=== PATIENT | female | born 1935 | race Caucasian/White ===

== ENCOUNTER 2019-01-23 10:11 | Day surgery (SDC) | payer OTHER ==
[~2019-01-23] VITALS: Ht 160 cm; Wt 77.1 kg
[~2019-01-23 10:11] MED LIST: ALEN70 PO; ALPR.25 PO; ALPR.5 PO; ASPI81EC PO; Azor 5-20 MG T1 EACH; BELPTAB PO; Bactrim 400-801 EACH PO; CALCIT950 PO; CARI350 PO; CARV25 PO; CARV3.125 PO; CARV6.25 PO; CELE200; CLON1 PO; CODACE30; CODACE30 PO; CONEST1.25; CONEST1.25 PO; CYAN500 PO; Coreg6.25 MG PO; DIPATR PO; ERYT.5TO OD; ESOM20 PO; FERR325 PO; FISH1000 PO; FLUO10 PO; FLUO20; FLUO20 PO; GLUCHON PO; LEVSOD100; LEVSOD100 PO; LEVSOD25; LEVSOD25 PO; LISI20 PO; LISI5 PO; MELO7.5 PO; MILN100T PO; MULVITB PO; MULVITMIND PO; Mirapex0.25 MG PO; Mirapex0.5 MG PO; Mobic15 MG PO; OMEG1CAP30 PO; OMEP10ER PO; OMEP20ER PO; Omeprazole20 M1 PO; PANT40 PO; PARO20 PO; PRAM.125 PO; PRAM.5 PO; PROM25 PO; Prozac20 MG PO; SPIR25; SPIR25 PO; UBID10 PO; UBID100 PO; VITAMIN D3; [UNRECOGNIZED DRUG - REMARK]
[2019-01-23] MEDS ORDERED: LORA.5 (11:05)
[2019-01-23] MEDS ORDERED: AMLO5 (11:07)
--- NOTE | 2019-01-23 15:29 | NUR ---
01/23/19 1529 Mine Zapata PT COMPLAINED OF PAIN DURING STEP DOWN. RN TREATED WITH IV PAIN MEDICATIONS PER DR'S ORDERS (SEE VITAL SIGNS). RN WENT OVER DISCHARGE INSTRUCTIONS WITH PT AND PT'S DAUGHTER UNTIL ALL QUESTIONS WERE ANSWERED. VSS WHILE IN STEP DOWN. PT TOLERATED PO FLUIDS AND CRACKERS WELL AND DEINED NAUSEA. PT IS NOW DRESSING WITH HELP FROM HER DAUGHTER.
== END 2019-01-23 15:45 | disposition home or self-care (01) ==
LOC: ORSCSDS 10:11
PROVIDERS: Podiatrist Foot & Ankle Surgery
PROC: 0SGJ04Z Fusion of Left Tarsal Joint with Internal Fixation Device, Open Approach (ICD-10-PCS; principal; 2019-01-23 11:30)
PROC: 0LQW0ZZ Repair Left Foot Tendon, Open Approach (ICD-10-PCS; principal; 2019-01-23 11:30)
DX: M19.072 Primary osteoarthritis, left ankle and foot (principal); S96.812A Strain of other specified muscles and tendons at ankle and foot level, left foot, initial encounter; I10 Essential (primary) hypertension; G47.33 Obstructive sleep apnea (adult) (pediatric); Z87.891 Personal history of nicotine dependence; E03.9 Hypothyroidism, unspecified; Z79.899 Other long term (current) drug therapy
CPT/HCPCS: C1713; C1769; J0171; J2250; J2704; J3010; J7120

== ENCOUNTER 2020-12-09 08:07 | Day surgery (SDC) | payer MEDICARE ==
[~2020-12-09] VITALS: Ht 160 cm; Wt 82.1 kg
[~2020-12-09 08:07] MED LIST changes: +AMLO5; +BUPR150ER PO; +LORA.5; +LORA.5 PO; +MOBIC15 MG PO; +SYNTHROID150 MC2 PO
--- NOTE | 2020-12-09 09:17 | NUR ---
12/09/20916 Tracy Zepeda VANCOMYCIN 1GM IN 100ML STARTED INTRAVENOUSLY AT 0915 BY Francisco ZEPEDA RN
--- NOTE | 2020-12-09 11:16 | NUR ---
12/09/20 1116 Liza Patiño 0.15CC OF EPI 1:1000 MIXED WITH 30CC OF 0.5% BUPIVICAINE TO MAKE [id number] MIXTURE
--- NOTE | 2020-12-09 12:49 | NUR ---
12/09/20 1249 GINGER LOPEZ WHEN ENTERED PACU, PT HAD MEMORY ISSUES. THOUGHT SHE WAS DREAMING AND UNABLE TO CONVEY HOW BAD PAIN WAS. STATED HURTING AND BEGAN CRYING. DID NOT KNOW WHERE SHE WAS OR WHY SHE WAS HERE. UNSURE WHY SHE HAD SURGERY.
== END 2020-12-09 13:30 | disposition home or self-care (01) ==
LOC: ORSCSDS 08:07
PROVIDERS: Podiatrist Foot & Ankle Surgery
PROC: 0SGJ04Z Fusion of Left Tarsal Joint with Internal Fixation Device, Open Approach (ICD-10-PCS; principal; 2020-12-09 09:45)
PROC: 0YPB0YZ Removal of Other Device from Left Lower Extremity, Open Approach (ICD-10-PCS; principal; 2020-12-09 09:45)
DX: M96.0 Pseudarthrosis after fusion or arthrodesis (principal); I10 Essential (primary) hypertension; E78.5 Hyperlipidemia, unspecified; E03.9 Hypothyroidism, unspecified; Z79.899 Other long term (current) drug therapy
CPT/HCPCS: A9270; C1713; C1769; J0171; J1100; J2370; J2405; J2704; J3010; J3370; J7120

== ENCOUNTER 2021-02-14 13:00 | Emergency (ER) | payer MEDICARE ==
[~2021-02-14] VITALS: Ht 160 cm; Wt 81.2 kg
[2021-02-14] MEDS ORDERED: HYDR1TAB94 PO (16:31)
== END 2021-02-14 16:40 | disposition home or self-care (01) ==
LOC: ER 13:00
DX: M25.562 Pain in left knee (principal); M79.89 Other specified soft tissue disorders; I25.2 Old myocardial infarction; Z88.0 Allergy status to penicillin; Z91.048 Other nonmedicinal substance allergy status; Z88.1 Allergy status to other antibiotic agents; Z88.8 Allergy status to other drugs, medicaments and biological substances; Z79.899 Other long term (current) drug therapy
CPT/HCPCS: 93971; 99283-25

== ENCOUNTER 2021-03-13 10:44 | Emergency (ER) | payer MEDICARE ==
[~2021-03-13] VITALS: Ht 160 cm; Wt 81.2 kg
[~2021-03-13 10:44] MED LIST changes: +HYDR1TAB94 PO
[2021-03-13] MEDS ORDERED: NAPR500 PO (14:40)
[2021-03-13] MEDS ORDERED: LIDO700A20 TOP (14:40)
== END 2021-03-13 15:00 | disposition home or self-care (01) ==
LOC: ER 10:44
DX: M54.42 Lumbago with sciatica, left side (principal); G89.29 Other chronic pain; I25.2 Old myocardial infarction; E03.9 Hypothyroidism, unspecified; K21.9 Gastro-esophageal reflux disease without esophagitis; Z79.899 Other long term (current) drug therapy
CPT/HCPCS: 96374; 99282-25; A9270; J1885

== ENCOUNTER 2021-03-17 11:01 | Emergency (ER) | payer MEDICARE ==
[~2021-03-17] VITALS: Ht 160 cm; Wt 77.1 kg
[~2021-03-17 11:01] MED LIST changes: +LIDO700A20 TOP; +NAPR500 PO
[2021-03-17] MEDS ORDERED: Roxicodone5 MG PO (14:29)
== END 2021-03-17 15:18 | disposition home or self-care (01) ==
LOC: ER 11:01
DX: M54.32 Sciatica, left side (principal); I25.2 Old myocardial infarction; E03.9 Hypothyroidism, unspecified; K21.9 Gastro-esophageal reflux disease without esophagitis; Z88.0 Allergy status to penicillin; Z88.8 Allergy status to other drugs, medicaments and biological substances; Z79.899 Other long term (current) drug therapy
CPT/HCPCS: 73502; 96374; 96375; 99284-25; J1170; J1630

== ENCOUNTER 2021-12-08 08:52 | Emergency (ER) | payer MEDICARE ==
[~2021-12-08] VITALS: Ht 160 cm; Wt 81.7 kg
[~2021-12-08 08:52] MED LIST changes: +Roxicodone5 MG PO
[2021-12-08 09:31] LABS: Source, Urine Clean Catch
[2021-12-08 09:35] LABS: Appearance, Urine Clear (Clear); Bilirubin, Urine Neg (Neg); Blood, Urine Neg (Neg); Color, Urine Yellow (P-Yellow); Glucose Qualitative, Urine Neg (Neg); Ketones, Urine Neg (Neg); Leukocyte Esterase, Urine Neg (Neg); Nitrite, Urine Neg (Neg); Protein, Urine Neg (Neg); Specific Gravity, Urine 1.015 (1.003-1.022); Urobilinogen, Urine NORM (Normal)
[2021-12-08 09:52] LABS: BASOPHILS ABSOLUTE AUTO 0.03 K/mm3 (0.00-0.23); BASOPHILS PERCENT AUTO 1 % (0-2); EOSINOPHILS ABSOLUTE AUTO 0.18 K/mm3 (0.00-0.68); EOSINOPHILS PERCENT AUTO 3 % (0-6); Hematocrit 43.1 % (33.0-51.0); Hemoglobin 14.4 g/dL (11.5-16.0); IMMATURE GRAN ABSOLUTE AUTO 0.01 K/mm3 (0.00-0.10); IMMATURE GRAN PERCENT AUTO 0 % (0-1); LYMPHOCYTES ABSOLUTE AUTO 2.81 K/mm3 (0.84-5.20); LYMPHOCYTES PERCENT AUTO 44 % (21-46); MONOCYTES ABSOLUTE AUTO 0.74 K/mm3 (0.16-1.47); MONOCYTES PERCENT AUTO 12 % (4-13); Mean Corpuscular HGB 29.8 pg (26.0-34.0); Mean Corpuscular HGB Conc 33.4 g/dL (31.5-36.5); Mean Corpuscular Volume 89 fL (80-100); Mean Platelet Volume 11.9 fL (9.1-12.4); NEUTROPHILS ABSOLUTE AUTO 2.69 K/mm3 (1.96-9.15); NEUTROPHILS PERCENT AUTO 42 % (41-73); Platelet Count 231 K/mm3 (150-400); RDW Coefficient Variation 13.7 % (11.7-14.2); RDW Standard Deviation 45.1 fL (35.1-46.3); Red Blood Cell Count 4.83 M/mm3 (3.80-5.20); White Blood Cell Count 6.46 K/mm3 (4.00-11.30)
[2021-12-08 10:08] LABS: Albumin, Blood 3.3 g/dL (3.4-5.0); Albumin/Globulin Ratio 0.9 (0.8-1.8); Bilirubin, Total 0.8 mg/dL (0.1-1.0); Bun/Creatinine Ratio 36.7 (12.0-20.0); Calcium, Blood 9.4 mg/dL (8.5-10.1); Creatinine, Blood 0.79 mg/dL (0.40-1.00); Globulin, Blood 3.6 g/dL (2.2-4.0); Potassium, Blood 4.5 mmol/L (3.5-5.5); Total Protein, Blood 6.9 g/dL (6.4-8.2)
== END 2021-12-08 11:21 | disposition home or self-care (01) ==
LOC: ER 08:52
PROVIDERS: Physician Assistant
DX: F03.90 Unspecified dementia, unspecified severity, without behavioral disturbance, psychotic disturbance, mood disturbance, and anxiety (principal); I25.2 Old myocardial infarction; E03.9 Hypothyroidism, unspecified; F32.A Depression, unspecified; F41.9 Anxiety disorder, unspecified; K21.9 Gastro-esophageal reflux disease without esophagitis; Z79.899 Other long term (current) drug therapy; Z88.1 Allergy status to other antibiotic agents; Z88.5 Allergy status to narcotic agent; Z88.0 Allergy status to penicillin; Z88.8 Allergy status to other drugs, medicaments and biological substances; Z91.09 Other allergy status, other than to drugs and biological substances
CPT/HCPCS: 51701; 80053; 81003; 85025; 93005; 93010; 99285-25

== ENCOUNTER 2023-05-21 11:37 | Emergency (ER) | payer MEDICARE ==
[~2023-05-21] VITALS: Ht 160 cm; Wt 85.3 kg
[2023-05-21] MEDS ORDERED: VALA500 PO (12:15)
[2023-05-21] MEDS ORDERED: PRED20 PO (12:15)
[2023-05-21] MEDS ORDERED: ERYT.5TO RIGHTEYE (12:15)
[2023-05-21 12:42] VITALS: BP 155/104
== END 2023-05-21 12:42 | disposition home or self-care (01) ==
LOC: ER 11:37
DX: G51.0 Bell's palsy (principal); E03.9 Hypothyroidism, unspecified; I25.2 Old myocardial infarction; F03.90 Unspecified dementia, unspecified severity, without behavioral disturbance, psychotic disturbance, mood disturbance, and anxiety; K21.9 Gastro-esophageal reflux disease without esophagitis; Z88.0 Allergy status to penicillin; Z91.09 Other allergy status, other than to drugs and biological substances; Z88.1 Allergy status to other antibiotic agents; Z88.8 Allergy status to other drugs, medicaments and biological substances; Z79.899 Other long term (current) drug therapy; Z79.890 Hormone replacement therapy; Z96.653 Presence of artificial knee joint, bilateral; Z87.891 Personal history of nicotine dependence
CPT/HCPCS: 93005; 93010; 99284-25; A9270; J7512

== ENCOUNTER 2023-05-29 14:51 | Emergency (ER) | payer MEDICARE ==
[~2023-05-29] VITALS: Ht 160 cm; Wt 83.9 kg
[~2023-05-29 14:51] MED LIST changes: +ERYT.5TO RIGHTEYE; +PRED20 PO; +VALA500 PO
[2023-05-29 15:42] LABS: BASOPHILS ABSOLUTE AUTO 0.02 K/mm3 (0.00-0.23); BASOPHILS PERCENT AUTO 0 % (0-2); EOSINOPHILS ABSOLUTE AUTO 0.12 K/mm3 (0.00-0.68); EOSINOPHILS PERCENT AUTO 1 % (0-6); Hemoglobin 13.6 g/dL (11.5-16.0); IMMATURE GRAN ABSOLUTE AUTO 0.07 K/mm3 (0.00-0.10); IMMATURE GRAN PERCENT AUTO 1 % (0-1); LYMPHOCYTES ABSOLUTE AUTO 3.82 K/mm3 (0.84-5.20); LYMPHOCYTES PERCENT AUTO 41 % (21-46); MONOCYTES ABSOLUTE AUTO 1.12 K/mm3 (0.16-1.47); MONOCYTES PERCENT AUTO 12 % (4-13); Mean Corpuscular HGB 29.4 pg (26.0-34.0); Mean Corpuscular HGB Conc 32.4 g/dL (31.5-36.5); Mean Corpuscular Volume 91 fL (80-100); Mean Platelet Volume 12.1 fL (9.1-12.4); NEUTROPHILS ABSOLUTE AUTO 4.21 K/mm3 (1.96-9.15); NEUTROPHILS PERCENT AUTO 45 % (41-73); Platelet Count 235 K/mm3 (150-400); RDW Coefficient Variation 14.1 % (11.7-14.2); RDW Standard Deviation 46.5 fL (35.1-46.3); Red Blood Cell Count 4.63 M/mm3 (3.80-5.20); White Blood Cell Count 9.36 K/mm3 (4.00-11.30)
[2023-05-29 15:54] LABS: Albumin, Blood 3.1 g/dL (3.4-5.0); Bilirubin, Total 0.9 mg/dL (0.1-1.0); Bun/Creatinine Ratio 20.5 (12.0-20.0); Calcium, Blood 8.6 mg/dL (8.5-10.1); Creatinine, Blood 1.27 mg/dL (0.40-1.00); Potassium, Blood 4.2 mmol/L (3.5-5.5); Total Protein, Blood 6.1 g/dL (6.4-8.2)
[2023-05-29 17:15] VITALS: BP 142/78
== END 2023-05-29 17:27 | disposition home or self-care (01) ==
LOC: ER 14:51
PROVIDERS: Emergency Medicine
DX: R55 Syncope and collapse (principal); I95.9 Hypotension, unspecified; G51.0 Bell's palsy; I25.2 Old myocardial infarction; E03.9 Hypothyroidism, unspecified; F03.90 Unspecified dementia, unspecified severity, without behavioral disturbance, psychotic disturbance, mood disturbance, and anxiety; F32.A Depression, unspecified; F41.9 Anxiety disorder, unspecified; Z79.52 Long term (current) use of systemic steroids; Z79.890 Hormone replacement therapy; Z79.899 Other long term (current) drug therapy; Z88.0 Allergy status to penicillin; Z88.1 Allergy status to other antibiotic agents; Z88.8 Allergy status to other drugs, medicaments and biological substances; Z91.048 Other nonmedicinal substance allergy status
CPT/HCPCS: 71045; 80053; 84484; 85025; 93005; 93010; 96360; 99285-25; J7030

== ENCOUNTER 2023-07-28 14:20 | Inpatient (IN) | payer MEDICARE ==
[~2023-07-28] VITALS: Ht 154.9 cm; Wt 79.7 kg
[2023-07-28] VITALS (12 sets, daily range): BP systolic 68–161; BP diastolic 52–140
[2023-07-28] MEDS ORDERED: NS 1,000 ML IV SCH ×3 (14:40→18:20)
[2023-07-28] MEDS ORDERED: LEVOTHYROXINE125 MC9 PO (14:44)
[2023-07-28] MEDS ORDERED: QUET100 PO (14:45)
[2023-07-28] MEDS ORDERED: Seroquel Xr50 MG PO (14:45)
[2023-07-28] MEDS ORDERED: XARELTO20 MG PO (14:45)
[2023-07-28] MEDS ORDERED: Aspir 8181 MG PO (14:45)
[2023-07-28] MEDS ORDERED: OMEP20ER PO (14:45)
[2023-07-28 15:14] LABS: Hematocrit 39.6 % (33.0-51.0); Hemoglobin 13.1 g/dL (11.5-16.0); Mean Corpuscular HGB 29.2 pg (26.0-34.0); Mean Corpuscular HGB Conc 33.1 g/dL (31.5-36.5); Mean Corpuscular Volume 88 fL (80-100); Mean Platelet Volume 12.9 fL (9.1-12.4); Platelet Count 160 K/mm3 (150-400); RDW Standard Deviation 49.2 fL (35.1-46.3); Red Blood Cell Count 4.48 M/mm3 (3.80-5.20); White Blood Cell Count 26.13 K/mm3 (4.00-11.30)
[2023-07-28 15:34] LABS: Albumin, Blood 2.2 g/dL (3.4-5.0); Albumin/Globulin Ratio 0.5 (0.8-1.8); Bun/Creatinine Ratio 16.7 (12.0-20.0); Calcium, Blood 8.7 mg/dL (8.5-10.1); Creatinine, Blood 4.56 mg/dL (0.40-1.00); Globulin, Blood 4.4 g/dL (2.2-4.0); Potassium, Blood 4.8 mmol/L (3.5-5.5); Total Protein, Blood 6.6 g/dL (6.4-8.2)
[2023-07-28 15:46] LABS: Source, Urine Straight Cath
[2023-07-28 15:46] LABS: Influenza A, PCR NEGATIVE (NEGATIVE); Influenza B, PCR NEGATIVE (NEGATIVE); Resp Syncytial Virus, PCR NEGATIVE (NEGATIVE); SARS-Cov-2 (COVID-19) PCR, MMC NEGATIVE (NEGATIVE)
[2023-07-28 15:49] LABS: Appearance, Urine Cloudy (Clear); Blood, Urine 3+ (Neg); Color, Urine Amber (P-Yellow); Glucose Qualitative, Urine Neg (Neg); Ketones, Urine 1+ (Neg); Leukocyte Esterase, Urine 1+ (Neg); Nitrite, Urine Neg (Neg); Protein, Urine 2+ (Neg); Specific Gravity, Urine 1.025 (1.003-1.022); Urobilinogen, Urine 1+ (Normal)
[2023-07-28 15:56] LABS: BAND PERCENT MAN 5 % (0-8); BASOPHILS PERCENT MAN 0 % (0-2); EOSINOPHILS PERCENT MAN 0 % (0-6); LYMPHOCYTES ABSOLUTE MAN 1.82 K/mm3 (0.84-5.20); LYMPHOCYTES PERCENT MAN 7 % (21-46); MONOCYTES ABSOLUTE MAN 2.35 K/mm3 (0.16-1.47); MONOCYTES PERCENT MAN 9 % (4-13); NEUTROPHILS ABSOLUTE MAN 21.94 K/mm3 (1.96-9.15); SEG NEUTROPHILS PERCENT MAN 79 % (41-73); TOTAL CELLS COUNTED 100
[2023-07-28] MEDS ORDERED: CefTRIAXone Sodium 1,000 MG in NS 50 ML IV ONE (16:00)
[2023-07-28 16:23] LABS: Bilirubin, Urine 1+ (Neg)
[2023-07-28 16:25] LABS: Bacteria Many /hpf; Red Blood Cells, Urine 25-50 /hpf (0-2); Squamous Epithelial Cells Mod /hpf (Few); Transitional Epithelial Cells Rare /hpf (0-Rare)
[2023-07-28 16:27] LABS: Calcium Oxalate Crystals Rare /hpf; Hyaline Casts 0-2 /lpf (0-2)
[2023-07-28] MEDS ORDERED: FLU VACC QS2023-24(6MOS UP)/PF 60 MCG/0.5 ML SYRINGE IM ONE (18:20)
[2023-07-28] MEDS ORDERED: Acetaminophen 325 MG TABLET PO PRN (18:20)
[2023-07-28] MEDS ORDERED: Ondansetron HCl 2 MG / ML 2ML Vial IV PRN (18:20)
[2023-07-28] MEDS ORDERED: Dose Adjust by Pharmacy XX STA (18:55)
[2023-07-28] MEDS ORDERED: Heparin Sodium 5000 Units/ML 1ML MDV IV ONE (19:00)
[2023-07-28] MEDS ORDERED: Heparin Sodium,Porcine/0.5 NS 500 ML IV SCH (19:00)
[2023-07-28 19:03] LABS: Anti-Xa UFH, PHA Monitoring <0.10 IU/mL; International Normalized Ratio 1.09; Prothrombin Time Results 11.4 Sec (9.7-11.5)
[2023-07-28] MEDS ORDERED: Pramipexole DI-HCL 0.25 MG Tab PO SCH (21:00)
[2023-07-28] MEDS ORDERED: Lactobacil 2-S.Thermo-Bifido 1 1 Cap PO SCH (21:00)
[2023-07-28] MEDS ORDERED: QUEtiapine Fumarate 50 MG TAB PO SCH (21:00)
[2023-07-28] MEDS ORDERED: NS 1,000 ML BAG IR ONE (21:15)
[2023-07-28] MEDS ORDERED: NS 250 ML IV PRN (21:20)
[2023-07-28] MEDS ORDERED: NS 250 ML IV SCH (21:23)
[2023-07-29] VITALS (10 sets, daily range): BP systolic 70–109; BP diastolic 53–77
[2023-07-29 01:04] LABS: Hematocrit 34.1 % (33.0-51.0); Hemoglobin 11.2 g/dL (11.5-16.0); Mean Corpuscular HGB 28.9 pg (26.0-34.0); Mean Corpuscular HGB Conc 32.8 g/dL (31.5-36.5); Mean Corpuscular Volume 88 fL (80-100); Platelet Count 140 K/mm3 (150-400); RDW Coefficient Variation 15.3 % (11.7-14.2); RDW Standard Deviation 49.1 fL (35.1-46.3); Red Blood Cell Count 3.87 M/mm3 (3.80-5.20); White Blood Cell Count 23.63 K/mm3 (4.00-11.30)
[2023-07-29 01:06] LABS: Mean Platelet Volume 13.2 fL (9.1-12.4)
[2023-07-29 01:19] LABS: Albumin, Blood 1.9 g/dL (3.4-5.0); Albumin/Globulin Ratio 0.5 (0.8-1.8); Bilirubin, Total 0.5 mg/dL (0.1-1.0); Bun/Creatinine Ratio 21.6 (12.0-20.0); Calcium, Blood 7.5 mg/dL (8.5-10.1); Creatinine, Blood 3.66 mg/dL (0.40-1.00); Globulin, Blood 3.6 g/dL (2.2-4.0); Potassium, Blood 4.6 mmol/L (3.5-5.5); Total Protein, Blood 5.5 g/dL (6.4-8.2)
[2023-07-29 01:24] LABS: BAND PERCENT MAN 12 % (0-8); BASOPHILS PERCENT MAN 0 % (0-2); EOSINOPHILS PERCENT MAN 0 % (0-6); LYMPHOCYTES PERCENT MAN 3 % (21-46); MONOCYTES PERCENT MAN 3 % (4-13); NEUTROPHILS ABSOLUTE MAN 22.21 K/mm3 (1.96-9.15); SEG NEUTROPHILS PERCENT MAN 82 % (41-73); TOTAL CELLS COUNTED 100
--- NOTE | 2023-07-29 03:34 | NUR ---
END OF SHIFT NOTE: PT ARRIVED ON UNIT FROM ER WITH FAMILY AT [facility]. PT WAS VERY AGGITAGED AND REFUSING TO ANSWER QUESTIONS OR PARTICIPATE IN CARE. PT ALERT AND ORIENTED TO SELF ONLY. SPO2>90% ON RA. BP'S SOFT NOTIFIED AND PT BOLUSED PER EMAR. PT REFUSES USE OF CPAP. PT HAS ABSENT PULSES ON RIGHT LE. UNSTAGABLE PRESSURE WOUND ON LEFT HEEL, SCRATCHES ON RIGHT HIP, DISCOLORATION ON RIGHT LE, AND REDDENED AREA ON COCCYX-PICTURES IN CHART. PT ABLE TO TAKE MEDS WHOLE IN PUDDING. SHE DENIES PAIN. HEPARIN AND FLUIDS RUNNING PER EMAR. PT HAS CALL LIGHT IN REACH, BED IN LOWEST POSITOIN, AND BEDALARM ON. WILL REPORT TO ONCOMING RN.
--- NOTE | 2023-07-29 04:18 | NUR ---
PT STRAIGHT CATHED DUE TO >800ML. BLADDER DRAINED AND PUREWICK REPLACED.
[2023-07-29] MEDS ORDERED: Omeprazole 20 MG CapCR PO SCH (06:00)
[2023-07-29] MEDS ORDERED: Levothyroxine Sodium 0.125 MG Tab PO SCH (06:00)
[2023-07-29] MEDS ORDERED: Clarify Drug Order XX ONE (07:50)
[2023-07-29] MEDS ORDERED: Aspirin 81 MG TabEC PO SCH (09:00)
[2023-07-29] MEDS ORDERED: Lactated Ringer's 1,000 ML IV SCH (09:00)
[2023-07-29] MEDS ORDERED: Acetaminophen 650 MG Supp PR PRN (11:10)
[2023-07-29] MEDS ORDERED: Morphine Sulfate 10 MG/ML 1MLSYR IV PRN (11:10)
[2023-07-29] MEDS ORDERED: Scopolamine Hydrobromide Patch TOP PRN (11:10)
[2023-07-29] MEDS ORDERED: Atropine Sulfate 1% Opth Soln 2ML BTL SL PRN (11:10)
[2023-07-29] MEDS ORDERED: Morphine Sulfate 20 MG/1ML 1 ML Oral Syringe SL PRN (11:10)
[2023-07-29] MEDS ORDERED: LORazepam 1 MG Tab PO PRN (11:10)
[2023-07-29] MEDS ORDERED: LORazepam 2 MG/ML 1ML Injection IV PRN (11:10)
--- NOTE | 2023-07-29 11:17 | NUR ---
Met with family at bedside with Doctors present. They had just discussed comfort care, as pt is no longer responsive and 02 sats and BP trending down. Family agree with comfort care, received v/o from Dr. Thompson for comfort care, along with comfort medications. Orders placed. Will continue to provide support to family, assist bedside RN as needed for symptom management.
--- NOTE | 2023-07-29 13:24 | NUR ---
CARE ASSUMPTION PT ABLE TO COMMUNITCATE UPON CARE ASSUMPTION. CONFUSED, BUT ABLE TO ANSWER YES OR NO QUESTIONS. DISORIENTED TO PLACE/SITUATION/DATE. ASKS FOR DAUGHTERS. ABLE TO TAKE MEDS IN PUDDING. MD ROBERTSON IN ROOM TO CONSULT. MD ROBERTSON CALLED DAUGHTER, KATIE SHIELDS, WHO WAS HEADING TO ROOM. MD ROBERTSON AND CORNELIUS IN ROOM, CALLED PT'S PCP, MD LATOYA SOMMER TO DISCUSS APPROPRIATENESS OF PROCEDURE. PT'S DAUGHTER OPTED FOR COMFORT CARE INSTEAD OF PROCEDURE. MD MCKNIGHT CONTACTED. PALLIATIVE CARE CONTACTED. PT CHANGED TO COMFORT CARE. NO LONGER ALERT, RESPONDS TO PAIN. PAIN WITH REPOSITIONING, MEDICATING PER EMAR. ATTENDS C/D/I. MULTILPE FAMILY MEMBERS IN ROOM. TELE REMOVED. PT RESTING COMFORTABLY.
[2023-07-29] MEDS ORDERED: CefTRIAXone Sodium 1,000 MG in NS 50 ML IV SCH (16:00)
--- NOTE | 2023-07-29 18:18 | NUR ---
SHIFT SUMMARY SINCE CARE ASSUPMTION, MULTIPLE FAMILY IN ROOM. PT RESTING COMFORTABLY. NOT RESPONDING TO SOUNDS BUT RESPONDS TO PAIN. EYES NOT TRACKING. MEDICATED PER EMAR. REPOSITIONED Q2H. PT MOANS W/ REPOSITIONING. CURRENTLY FLOATED ON PILLOWS, FAMILY AT BEDSIDE.
--- NOTE | 2023-07-30 00:45 | NUR ---
UPDATE BLADDER SCAN SHOWED 834ml IN PT'S BLADDER. PT ALSO NOTED TO BECOMING MORE RESTLESS IN THE BED AND FIGETING. THIS RN SPOKE WITH PT'S DAUGHTER (CORNELIUS) AT BEDSIDE ABOUT PROs AND CONs INSERTING A OWEN CATHETER DUE TO PT'S EXTREME PAIN WITH MOVEMENT AND ACUTE RETENTION. PT'S DAUGHTER AGREEABLE TO OWEN INSERTION. DISCUSSED PLAN WITH AUDIO VIDEO TECH KRISSY. THIS RN AND AUDIO VIDEO TECH KRISSY EACH ATTEMPTED TO INSERT OWEN TWICE WITH NO SUCCESS. PT MEDICATED FOR PAIN MANAGED BEFORE AND AFTER OWEN INTERSTION ATTEMPT. SEE EMAR FOR ADMIN. DETAILS. PT'S DAUGHTER OPTED FOR STAFF TO TRY AGAIN AT LATER DATE.
--- NOTE | 2023-07-30 05:15 | NUR ---
SHIFT SUMMARY VERY LETHARGIC WITH ONLY INTERMITTENT EPISODES OF SPONTANEOUS EYE OPENING. PT OFTEN SLEEPS OR STARES BLANKLY AT THE SEEING DESPITE STIMULATION. INITIALLY ABLE TO FOLLOW SIMPLE COMMANDS SUCH SQUEEZING HANDS, BUT PT HAS BECOME MUCH MORE ALTERED THROUGHOUT THE SHIFT. INTERMITTENTLY CAN ANSWER VERY SIMPLE YES/NO QUESTIONS, BUT SPEECH REMAINS VERY SOFT/MUMBLED. FAMILY HAS REMAINED AT THE BEDSIDE THROUGHOUT THE SHIFT. ATTEMPTED TO PLACE OWEN FOR ACUTE RETENTION WITH NO SUCCESS. SEE UPDATE NOTE FOR MORE DETAILS. PAIN HAS BEEN WELL MANAGED WITH PRN PAIN MEDICATIONS. ORAL CARE WITH SUCTION PERFORMED TO KEEP ORAL MUCOSA CLEAN AND MOIST. COMFORT CARE MEASURES STILL IN EFFECT. NO NEW ORDERS AT THIS TIME, WILL REPORT TO ONCOMING RN.
--- NOTE | 2023-07-30 10:50 | NUR ---
Pt appears to be sleeping comfortably, respirations are even and unlabored. Pt's daughter Vanesa and Vanesa's son Jared are at the bedside, state that pt appears comfortable and they have no needs at this time.
--- NOTE | 2023-07-30 15:39 | NUR ---
Assumed care of patient at approx 1220; pt resting comfortably; this afternoon pt resp rate increased and breathing deep and fast and patient grimacing in pain; medicated per emar. Placed bishop catheter; medicated prior to placement for movement. Report givent to rn assuming care of patient. Pt transfered at approx 1530.
--- NOTE | 2023-07-30 15:40 | NUR ---
PT ARRIVED TO THE MEDICAL FLOOR FROM THE PCU VIA BED. REPORT TAKEN FROM CRYSTAL TALAVERA. PTS FAMILY AT THE BEDSIDE. PT IS NON VERBAL APPEARS TO BE COMFORTABLE AT THIS TIME. CALL LIGHT IN REACH
--- NOTE | 2023-07-31 08:06 | NUR ---
SHIFT SUMMARY ASAEL IS LETHARGIC, ON COMFORT CARE. PT GETS TENSE AND GRIMACES WHEN IN PAIN, AND WITH REPOSITIONING. MEDICATED PER EMAR TO KEEP PT COMFORTABLE. OWEN DRAINING DARK YELLOW URINE, NO BM THIS SHIFT. FAMILY AT BEDSIDE T/O NOC. BED IN LOWEST POSITION. FREQUENT ROUNDING.
[2023-07-31] MEDS ORDERED: DiphenhydrAMINE HCl 50 MG/ML 1ML Vial IV PRN (09:35)
--- NOTE | 2023-07-31 19:13 | NUR ---
PT IS DROWSY AWAKENS TO PAIN STIMULATION/REPOSITIONING. PT WAS MORE AWAKE RESTLESS THIS AM PT WAS MEDICATED FOR PAIN AND WITH BENADRYL FOR ITCHING AFTER THAT THE PT SEEMED MORE RELAXED AND WAS ABLE TO SLLEP FOR HOURS. THE PT WAS MEDICATED FOR PAIN AGAIN AROUND 16:30 AND THEN AGAIN NOW [id number] WITH BENADRYL FOR ITCHING. FAMILY AT THE BEDSIDE. CALL LIGHT IN REACH
--- NOTE | 2023-08-01 05:36 | NUR ---
SHIFT SUMMARY: PT IS ADMITTED FOR UTI AND IS A DNR. IS CURRENTLY COMFORT CARE. IS NOT ABLE TO MAKE NEEDS KNOWN. ADLs HAVE BEEN 1P MAX THROUGH SHIFT. PAIN HAS BEEN MANAGED BY PRN PAIN MANAGEMENT. FOLLEY IN PLACE AND DRAINING SONALI URINE IN SMALL AMOUNTS. FAMILY AT BEDSIDE THROUGH MOST OF SHIFT.
--- NOTE | 2023-08-01 15:32 | NUR ---
PALLATIVE CARE- MET WITH PATIENT AND DAUGHTER. JOINT VISIT WITH PC RN JESSICA. DISCUSSED END OF LIFE WITH DAUGHTER AND EVALUATED ASAEL FOR CHANGES. ENCOURAGED DAUGHGTER TO CONTINUE TALKING WITH HER MOTHER. PROVIDED INFORMATION ON END OF LIFE. DISCUSSED SYMPTOM MANAGMENT WITH BEDSIDE RN AND ADVISED ON MEDICATIONS DURING THE NEXT REPOSITIONING.
--- NOTE | 2023-08-01 16:04 | NUR ---
Palliative Comfort Symptom Management Primary RN reports pain, anxiety and fever have decreased post ativan, roxanol and tylenol administration. Nataliia is resting peacefully, eyes closed and contraction of bilat hands improved. Primary RN reports fever has decreased since Tylenol was given. This PC RN spoke with juan pablo Stiles'd order to change Tylenol suppository from PRN to scheduled. PC will remain available.
--- NOTE | 2023-08-01 16:25 | NUR ---
SHIFT SUMMARY: PT IS AN 87 YEAR OLD FEMALE HERE ON COMFORT CARE. SHE HAS REMAINED NON-VERBAL AND ONLY RESPONSIVE TO PAINFUL STIMULI. HER DAUGHTERS HAVE BEEN AT BEDSIDE THE ENTIRE SHIFT. WHEN I CAME ON THIS MORNING THE PATIENT'S EYES WERE WIDE OPEN AND APPEARED UNCOMFORTABLE. PATIENT'S PAIN HAS BEEN TREATED AND MANAGED THROUGHOUT THE SHIFT AND SHE IS APPEARING COMFORTABLE AND RESTING; EYES CLOSED. SHE WILL OPEN HER EYES TO VOICES AND WHEN CARE IS BEING PROVIDED, BUT DOES NOT RESPOND VERBALLY BESIDES FOR MOANING/CRYING OUT DUE TO PAIN. SHE WAS FEBRILE WITH A FEVER OF 101.8; FELT WARM. TYLENOL SUPPOSITORY GIVEN AND ICE PACKS AND COOL WASHCLOTH APPLIED. PATIENT IS NOT FEBRILE AT THIS TIME WITH A TEMP OF 99.5. GOAL IS TO STAY ONTOP OF PAIN MEDICATIONS (ROXANOL) MAXIMUM EVERY 2 HOURS TO MAINTAIN PATIENT'S COMFORT. FAMILY IS AGREEABLE TO THIS PLAN. TYLENOL WAS ALSO ORDERED AND SCHEDULED FOR FEVERS. PATIENT IS BEING REPOSITIONED AND PROVIDED ORAL CARE. SHE ISN'T EATING OR DRINKING. SHE IS IN BED, FAMILY AT BEDSIDE, RESTING, APPEARS COMFORTABLE, RESPIRTATION EVEN AND UNLABORED. NO SIGNS OR SYMPTOMS OF DISTRESS. UNSURE OF EXPECTED TIME OF DEMISE AT THIS TIME. PLAN OF CARE ONGOING.
[2023-08-01] MEDS ORDERED: Acetaminophen 650 MG Supp PR SCH (18:00)
--- NOTE | 2023-08-02 08:03 | NUR ---
SHIFT SUMMARY PT IS ON COMFORT CARE ONLY PT RESPONDS TO VERBAL STIMULI AND DURING PATIENT CARE. PT DOES NOT RESPOND IN A MEANINGFUL WAY OR ANSWER QUESTIONS BUT OCCASIONALLY WILL MAKE NOISE. PT HAS OWEN IN PLACE DRAINING DARK YELLOW CLOUDY URINE. PT IS NOT EATING OR DRINKING. CHANGED SCOPOLAMINE PATCH THIS SHIFT. MEDICATED PT PER EMAR. PT RECEIVING TYLENOL SUPPOSITORY Q6 DUE TO FEVER DURING THE PREVIOUS SHIFT. PT HAS NOT HAD ANY FEVERS THIS SHIFT. BED IN LOWEST POSITION WITH CALL LIGHT WITHIN REACH.
--- NOTE | 2023-08-02 11:00 | NUR ---
Primary RN, Yeimi reports EOL symptoms were well managed t/o the night. Pt's daughters have elected for [facility]. roller cleaner notified of family choice for post mortum care. Family declined additional visit from PC or [facility] at this time. PC will remain available as needed for support.
--- NOTE | 2023-08-02 12:31 | NUR ---
TIME OF : PATIENT COMFORTABLY WITH BOTH DAUGHTERS AT HER SIDE. TIME OF 1219; VERIFIED WITH BATCH FREEZER OPERATOR AND MD NOTIFIED. PATIENT'S FAMILY DECIDED ON [facility] FOR THE PATIENT. BATCH FREEZER OPERATOR COORDINATING AT THIS TIME. FAMILY REFUSED A VISIT BY [facility] AND PALLATIVE CARE. FAMILY GIVEN TIME TO BE ALONE WITH PATIENT AT THIS TIME AND ADVISED TO NOTIFY STAFF WHEN THEY ARE READY FOR THE PATIENT TO BE DISCHARGED.
--- NOTE | 2023-08-02 13:38 | NUR ---
HERMAN FROM [facility] ARRIVED TO GET THE PATIENT. FACESHEET WAS PROVIDED AND PATIENT WAS TRAN[facility]ED [facility]. OWEN CATHETER AND IV STILL IN PLACE WHEN DISCHARGED. PATIENT'S RING STILL PRESENT ON LEFT HAND.
== END 2023-08-02 12:19 | DRG 299 ==
LOC: ER 14:20 → PCU 18:15 → MEDS 18:15 → PCU 19:38 → MEDS 07-30 15:31
PROVIDERS: Emergency Medicine; Nurse Practitioner Acute Care; ADMIT Internal Medicine
DX: I82.411 Acute embolism and thrombosis of right femoral vein (principal); G92.8 Other toxic encephalopathy; E87.20 Acidosis, unspecified; N17.9 Acute kidney failure, unspecified; I82.431 Acute embolism and thrombosis of right popliteal vein; I82.441 Acute embolism and thrombosis of right tibial vein; I82.451 Acute embolism and thrombosis of right peroneal vein; I70.221 Atherosclerosis of native arteries of extremities with rest pain, right leg; F03.90 Unspecified dementia, unspecified severity, without behavioral disturbance, psychotic disturbance, mood disturbance, and anxiety; E78.5 Hyperlipidemia, unspecified; Z66 Do not resuscitate; Z51.5 Encounter for palliative care; E86.0 Dehydration; E03.9 Hypothyroidism, unspecified; F32.A Depression, unspecified; F41.9 Anxiety disorder, unspecified; K21.9 Gastro-esophageal reflux disease without esophagitis; R79.89 Other specified abnormal findings of blood chemistry; I77.1 Stricture of artery; G47.33 Obstructive sleep apnea (adult) (pediatric); Z96.653 Presence of artificial knee joint, bilateral; Z91.148 Patient's other noncompliance with medication regimen for other reason; Z79.890 Hormone replacement therapy; Z79.82 Long term (current) use of aspirin; Z79.899 Other long term (current) drug therapy; Z88.0 Allergy status to penicillin; Z88.8 Allergy status to other drugs, medicaments and biological substances; Z87.891 Personal history of nicotine dependence; Z88.5 Allergy status to narcotic agent; I25.2 Old myocardial infarction; Z90.710 Acquired absence of both cervix and uterus; Z90.722 Acquired absence of ovaries, bilateral; Z90.79 Acquired absence of other genital organ(s); Z98.890 Other specified postprocedural states; Z98.1 Arthrodesis status; Z11.52 Encounter for screening for COVID-19
CPT/HCPCS: 0241U; 36415; 51701; 51703; 70450; 71045; 80053; 81001; 82550; 83605; 83735; 85025; 85520; 85610; 85730; 87040; 93005; 93010; 93306; 93926; 93971; 94762; 96361-59; 96365-59; 96366-59; 96367-59; 99285-25; A9270; J0696; J1200; J1644; J2060; J2270; J7030; J7050; J7120